=== PATIENT | female | born 1985 | race African-American/Black ===

== ENCOUNTER 2017-03-24 12:26 | Emergency (ER) | payer SELFPAY ==
[~2017-03-24] VITALS: Ht 188 cm; Wt 98.0 kg
[2017-03-24] MEDS ORDERED: BACITRACIN ZINC OINT UDPKT TOP ONE (14:30)
[2017-03-24] MEDS ORDERED: LIDOCAINE HCL 1% 20ML VIAL (Pyxis) INJ MC ONE (14:30)
[2017-03-24] MEDS ORDERED: TETANUS, DIPHTHERIA, PERTUSSIS VAC/PF 0.5ML (>7YR OLD) IM ONE (14:30)
[2017-03-24 15:08] VITALS: BP 121/64
== END 2017-03-24 20:00 | disposition home or self-care (01) ==
LOC: ER 18:20
DX: S61.412A Laceration without foreign body of left hand, initial encounter (principal); W26.0XXA Contact with knife, initial encounter; Y93.89 Activity, other specified; Y92.010 Kitchen of single-family (private) house as the place of occurrence of the external cause
CPT/HCPCS: 12002; 90471; 90715; 99283; J3490; Z7610